=== PATIENT | male | born 1960 | race Caucasian/White ===

== ENCOUNTER 2024-06-23 14:06 | Outpatient (CLI) | payer OTHER ==
[~2024-06-23 14:06] MED LIST: CELEBREX200MG PO; DICLOFENAC POTA50 MG PO; GABAPENTIN100 M2 PO
== END 2024-06-23 14:22 | disposition home or self-care (01) ==
LOC: MRI 14:06
PROVIDERS: ATTEND Physical Medicine & Rehabilitation
DX: M25.531 Pain in right wrist (principal)
CPT/HCPCS: 73221

== ENCOUNTER 2025-05-29 10:42 | Emergency (ER) | payer OTHER ==
[~2025-05-29] VITALS: Ht 175.3 cm; Wt 86.6 kg
[2025-05-29] MEDS ORDERED: ATACAND16 MG (11:19)
[2025-05-29] MEDS ORDERED: CODEIN (11:20)
[2025-05-29] MEDS ORDERED: PHENERGAN (11:20)
[2025-05-29] MEDS ORDERED: [UNRECOGNIZED DRUG - OTHER] (11:20)
[2025-05-29] MEDS ORDERED: ACID REDUCER20 M1 (11:20)
[2025-05-29 12:10] LABS: BASO % 0.4 % (0.1-1.2); EOS # 0.08 (0.04-0.54); EOS % 1.1 % (0.7-7.0); LYMPH # 1.95 (1.18-3.74); LYMPH % 25.7 % (19.3-53.1); MEAN PLATELET VOLUME 9.70 fl (9.4-12.4); MONO # 0.51 (0.24-0.82); MONO % 6.7 % (4.7-12.5); NEUT # 5.00 (1.56-6.13); NEUT % 65.8 % (34.0-71.1); RED CELL DISTRIBUTION WIDTH 13.1 % (11.6-14.4)
== END 2025-05-29 14:16 | disposition home or self-care (01) ==
LOC: ER 10:42
PROVIDERS: General Practice
DX: K21.9 Gastro-esophageal reflux disease without esophagitis (principal); R05.9 Cough, unspecified; I10 Essential (primary) hypertension